=== PATIENT | male | born 1980 | race Two or more races ===

== ENCOUNTER 2017-11-16 11:12 | Emergency (ER) | payer MEDICAID, OTHER ==
--- NOTE | 2017-11-16 12:00 | EDPHY ---
H & P Time Seen by Provider: 11/16/17 11:42 HPI/ROS: HPI Med clearance for snf. 37-year-old male with [place] police in by EMS. Patient is currently under arrest. On his way to snf he was thought to have seizure activity. EMS evaluated him. They felt this was low probability. His blood sugar was 114. However they decided to bring him to the emergency department to be medically cleared. EMS and police report that he was of clear speech in verbally abusive to them on the way to the hospital. He then will shut his eyes and not respond to questioning. When I evaluated him he opens his eyes spontaneously. He answers questions appropriately. The 1st thing he said was "I am fucking dehydrated and I need something to eat." He denies alcohol. He admits to recent use of cocaine and methamphetamine. There is no history of trauma or assault. He has no other complaints. ROS: Constitutional: No fever, no chills. No weakness. Eyes: No discharge. No changes in vision. ENT: No sore throat. No nasal congestion or rhinorrhea. Respiratory: No cough. No shortness of breath. Cardiac: No chest pain, no palpitations. Gastrointestinal: No abdominal pain, no vomiting, no diarrhea. Genitourinary: No hematuria. No dysuria or increased frequency with urination. Musculoskeletal: No back pain. No neck pain. No myalgias or arthralgias. Skin: No rashes. Neurological: No headache. No focal weakness or altered sensation. Past medical history: Traumatic brain injury, history of seizures, anxiety. Polysubstance abuse. Social history: Polysubstance abuse. In and out of snf. Denies alcohol. Physical Exam: General Appearance: Alert, no distress. This patient is responding to questions appropriately and in full sentences. This patient appears well- hydrated and well-nourished. Head: Normocephalic atraumatic except for a superficial abrasion to the superior anterior mid scalp. No associated hematoma, bony step-off or deformity noted. Face: Facial bones are stable on palpation. Eyes: Pupils equal and round and reactive to light, no pallor or injection. No lid erythema or edema. ENT, Mouth: Mucous membranes moist. Dentition is intact. No malocclusion of the jaw. No tongue lacerations or abrasions. Pharynx is clear. The bilateral nasal canals are clear. No septal hematoma. Respiratory: There are no retractions, lungs are clear to auscultation with good air movement bilaterally. Chest wall is stable to AP and lateral palpation. Cardiovascular: Regular rate and rhythm. Borderline tachycardia. No murmur. Gastrointestinal: Abdomen is soft and nontender, no masses, bowel sounds normal. Neurological: Motor sensory function is intact. Cranial nerves are normal. Cerebellar function intact. Skin: Warm and dry, no rashes. No lacerations, abrasions or contusions. Musculoskeletal: Neck is supple and nontender. The trachea is midline. No midline cervical, thoracic, lumbar or sacral tenderness on palpation. No flank tenderness on palpation. Extremities are symmetrical, full range of motion. All joints in the bilateral upper and bilateral lower extremities range without pain or impingement. No tenderness on palpation of the long bones in the bilateral upper and bilateral lower extremities. Psychiatric: No agitation. No depression. Database: EKG: Imaging: Procedures: Emergency department course: Triage vital signs reviewed. Mildly tachycardic. Vital signs otherwise normal. I feel that a seizure is unlikely in this patient. He was medically cleared for discharge with police to snf at 12:00 p.m.. Follow-up and return to emergency department precautions were reviewed with him and the police. All of his questions were answered. The patient was discharged in good condition. Differential Diagnosis: The differential diagnosis on this patient includes but is not limited to polysubstance abuse, medical clearance for snf. Seizure, hypoglycemia, traumatic brain injury, other significant traumatic injury unlikely. This represents a partial list of diagnoses considered. These considerations are based on history, physical exam, past history, reassessment and diagnostic testing. Smoking Status: Current every day smoker Constitutional: Initial Vital Signs Temperature (C) 36.6 C 11/16/17 11:16 Heart Rate 108 H 11/16/17 11:16 Respiratory Rate 20 11/16/17 11:16 Blood Pressure 130/87 H 11/16/17 11:16 O2 Sat (%) 94 11/16/17 11:16 O2 Delivery Mode Room Air Allergies/Adverse Reactions: No Known Allergies Allergy (Unverified 11/16/17 11:28) Home Medications: Medication Instructions Recorded NK [No Known Home Meds] 11/16/17 Departure - Departure Disposition: Law Enforcement/Court/[facility] Clinical Impression: Polysubstance abuse, Medical clearance for incarceration Condition: Good Instructions: Polysubstance Abuse (ED) Additional Instructions: Read and follow provided instructions. Follow-up with your primary care physician in 1-2 days for re-evaluation. Do not take drugs. Return to the emergency department for worsening symptoms or other serious concerns. Referrals: NONE *PRIMARY CARE P,. [Primary Care Provider] - As per Instructions
[2017-11-16 12:31] VITALS: BP 118/88
== END 2017-11-16 12:31 ==
LOC: EDUNIT#
DX: Z02.89 Encounter for other administrative examinations (principal); F19.10 Other psychoactive substance abuse, uncomplicated; F17.200 Nicotine dependence, unspecified, uncomplicated

== ENCOUNTER 2017-12-26 21:12 | Emergency (ER) | payer MEDICAID ==
[2017-12-26 21:20] VITALS: BP 117/63
--- NOTE | 2017-12-26 21:30 | EDPHY ---
H & P Stated Complaint: LUMP ON BACK X2 YRS, "GETTING BIGGER" Time Seen by Provider: 12/26/17 21:29 HPI/ROS: HPI: This is a 37-year-old male who presents with Chief Complaint: Lump on back getting bigger; present for 2 years Location: Back Quality: Lump Duration: 2 year Signs and Symptoms: No bleeding, no radiation, no numbness, no weakness, no tingling, no incontinence, no decreased range of motion, no swelling, no pain, no fever Timing: Chronic Severity: Mild Context: Patient reports that he has a lump on his upper back that has slowly increased in size over the last 2 years. He denies any skin color changes, redness, warmth, discharge, trauma. Reports that he his girlfriend became concerned, so he came in to the emergency room tonight for further evaluation. He has no primary care provider. Modifying Factors: None Comment: ROS: see HPI Constitutional: No fever, no chills, no weight loss Eyes: No blurred vision Respiratory: No shortness of breath, no cough Cardiovascular: No chest pain Gastrointestinal: No nausea, no vomiting no diarrhea Genitourinary: No dysuria Extremities: No myalgias Neurologic: No weakness, no numbness Skin: No rashes Hematologic: No bruising, no bleeding MEDICAL/SURGICAL/SOCIAL HISTORY: Medical history: TBI. Seizures. Anxiety. Surgical history: Denies Social history: Current every day smoker. Unemployed. CONSTITUTIONAL: Extremely well-appearing adult male, awake and alert, no obvious distress HEENT: Atraumatic and normocephalic, PERRL, EOMI. Nares patent; no rhinorrhea; no nasal mucosal edema. Tympanic membranes clear. Oropharynx clear, no exudate and moist pink mucosa. Airway patent. No lymphadenopathy. No meningismus. Cardiovascular: Normal S1/S2, regular rate, regular rhythm, without murmur rub or gallop. PULMONARY/CHEST: Symmetrical and nontender. Clear to auscultation bilaterally. Good air movement. No accessory muscle usage. ABDOMEN: Soft, nondistended, nontender, no rebound, no guarding, no peritoneal signs, no masses or organomegaly. No CVAT. EXTREMITIES: 2/2 pulses, strength 5/5, no deformities, no clubbing, no cyanosis or edema. NEUROLOGICAL: no focal neuro deficits. GCS 15. SKIN: Warm and dry, no erythema. no rash. Good capillary refill. Source: Patient Exam Limitations: No limitations - Personal History Current Tetanus/Diphtheria Vaccine: Yes Tetanus Vaccine Date: 12/2017 - Medical/Surgical History Hx Asthma: No Hx Chronic Respiratory Disease: No Hx Diabetes: No Hx Cardiac Disease: No Hx Renal Disease: No Hx Cirrhosis: No Hx Alcoholism: No Hx HIV/AIDS: No Hx Splenectomy or Spleen Trauma: No Other PMH: TBI. Seizures. Anxiety. - Social History Smoking Status: Current every day smoker Constitutional: Initial Vital Signs Temperature (C) 36.8 C 12/26/17 21:17 Heart Rate 85 12/26/17 21:17 Respiratory Rate 20 12/26/17 21:17 Blood Pressure 117/63 12/26/17 21:17 O2 Sat (%) 96 12/26/17 21:17 O2 Delivery Mode Room Air Allergies/Adverse Reactions: No Known Allergies Allergy (Unverified 12/26/17 21:17) Home Medications: Medication Instructions Recorded NK [No Known Home Meds] 11/16/17 Medical Decision Making ED Course/Re-evaluation: No signs of neurovascular compromise/tenting of skin/compartment syndrome/ extremities and joints examined above and below area of concern and are neurovascularly intact/abscess/cellulitis. This is clearly a subcutaneous cyst vs. lipoma. Advised to follow up with General surgery or plastic surgery for removal. No antibiotics or incision and drainage are indicated at this time. This patient was seen under the supervision of my secondary supervising physician. I evaluated care for this patient independently. Discussed this patient with Dr. Machado. Differential Diagnosis: Differential diagnosis includes but is not limited to sebaceous cyst, lipoma, malignancy, abscess. Departure - Departure Disposition: Home, Routine, Self-Care Clinical Impression: Lipoma of back Condition: Good Instructions: Lipoma (ED), Soft Tissue Mass (ED), Lipoma Removal (DC) Additional Instructions: Return to the ER immediately if you experience redness, red streaks, have fevers /chills, flu like symptoms, limited range of motion, or any other symptoms that concern you. Referrals: [facility],. [Clinic] - Follow Up Only If Needed
== END 2017-12-26 22:05 | disposition home or self-care (01) ==
DX: D17.1 Benign lipomatous neoplasm of skin and subcutaneous tissue of trunk (principal); F17.200 Nicotine dependence, unspecified, uncomplicated

== ENCOUNTER 2018-02-01 11:00 | Emergency (ER) | payer MEDICAID ==
[2018-02-01] MEDS ORDERED: PROMETHAZINE HCL 25 MG/ML INJ IVP ONE (11:17)
[2018-02-01] MEDS ORDERED: NS 1,000 ML IV ONE (11:17)
--- NOTE | 2018-02-01 11:17 | EDPHY ---
General Time Seen by Provider: 02/01/18 11:09 Narrative: CHIEF COMPLAINT: Shaky, nausea, fever HISTORY OF PRESENT ILLNESS: Patient presents by private vehicle with spouse. He complains of feeling sudden onset of shaky, feeling achy, nauseated, fever, dizzy, "everything went blank." He states that he woke this morning feeling well, but the symptoms started while at work. He has had no chest pain. No headache. No neck pain or stiffness. Difficult for him to describe the symptoms, he repeatedly states "under no I just feel really really sick and achy. I can't really describe it. " He states that he is tried to vomit but has had been able to do so. No shortness of breath. Mild, nonproductive cough. No abdominal pain. No back pain. No trauma or injury. No other associated complaints or modifying factors. REVIEW OF SYSTEMS: Ten systems reviewed and are negative unless otherwise noted in the HPI PCP: [facility] SPECIALISTS: None PAST MEDICAL HISTORY: Traumatic brain injury, seizures, anxiety. 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 Daily tobacco use. Occasional alcohol use. Works here locally. FAMILY HISTORY: Noncontributory EXAMINATION General Appearance: Alert, no distress Head: normocephalic, atraumatic Eyes: Pupils equal and round, no conjunctival pallor or injection. EOM symmetric. ENT, Mouth: Mucous membranes moist Neck: Normal inspection, supple, non-tender. Painless range of motion all planes with no meningismus or rigidity. Respiratory: Mild scattered rhonchi. No wheezing, crackles or diminishment Cardiovascular: Regular rate and rhythm. No murmur Gastrointestinal: Abdomen is soft and nontender Back: non-tender, no bony abnormalities Neurological: GCS 15. A&O, nonfocal, normal gait Skin: Warm and dry, no rash. Multiple tattoos. No petechiae or purpura Extremities: Nontender, no pedal edema Psychiatric: Mood and affect normal DIFFERENTIAL DIAGNOSES: Including but not limited to viral illness, anxiety, dehydration, gastritis, pancreatitis, cholecystitis, cholelithiasis MDM: 11:15 a.m. Acute vague symptomatology without any abnormality on examination. Vital signs are within normal limits. He is afebrile and does not exhibit any SIRS criteria. I have ordered laboratory studies. IV will be placed in will administer antinausea medication as well as IV fluid. Chest x-ray has been ordered to rule out pneumonia. He is resting comfortably in no acute distress with his spouse at bedside. 12:00 p.m. Chest x-ray unremarkable for any pneumonia. CBC is unremarkable. Remainder laboratory studies pending. 12:30 p.m. Chemistry returns with a normal lipase. His LFTs are normal with exception of mild elevation of the AST and ALT. No previous values available for comparison. I re-evaluated the patient this time. He states that he is feeling much better. He has tolerated liquids by mouth. No vomiting here. He says that his symptoms are significantly better. I do feel he is stable for discharge home at this time. We discussed increasing fluid intake with clear liquid diets today. We discussed antiemetic prescription medication. We discussed follow up primary care physician and ED precautions for worsening symptoms. He is comfortable this plan discharged home stable condition. SUPERVISION: This patient was independently evaluated without direct involvement of or examination by the attending physician. - Diagnostics Imaging Results: Imaging Impressions Chest X-Ray 02/01/18 11:17 Impression: No focal pneumonia. - History Smoking Status: Current every day smoker - Objective Vital Signs: Initial Vital Signs Temperature (C) 98.4 F 02/01/18 11:02 Heart Rate 73 02/01/18 11:02 Respiratory Rate 16 02/01/18 11:02 Blood Pressure 129/74 H 02/01/18 11:02 O2 Sat (%) 98 02/01/18 11:02 O2 Delivery Mode Room Air Allergies/Adverse Reactions: No Known Allergies Allergy (Verified 02/01/18 11:02) Home Medications: Medication Instructions Recorded Ondansetron Odt [Zofran Odt 4 mg 4 mg PO Q6 PRN #12 tab 02/01/18 (*)] Promethazine HCl [Phenergan 25mg 25 mg PO Q8 PRN #12 tab 02/01/18 (*)] Laboratory Results: Laboratory Results 02/01/18 11:30 02/01/18 11:30 02/01/18 02/01/18 11:30 11:30 WBC 6.08 10^3/uL 10^3/uL (3.80-9.50) RBC 5.15 10^6/uL 10^6/uL (4.40-6.38) Hgb 16.2 g/dL g/dL (13.7-17.5) Hct 45.5 % % (40.0-51.0) MCV 88.3 fL fL (81.5-99.8) MCH 31.5 pg pg (27.9-34.1) MCHC 35.6 g/dL g/dL (32.4-36.7) RDW 11.8 % % (11.5-15.2) Plt Count 220 10^3/uL 10^3/uL (150-400) MPV 9.9 fL fL (8.7-11.7) Neut % (Auto) 73.8 % % (39.3-74.2) Lymph % (Auto) 21.4 % % (15.0-45.0) [place] % (Auto) 3.0 % L % (4.5-13.0) Eos % (Auto) 0.5 % L % (0.6-7.6) Baso % (Auto) 1.0 % % (0.3-1.7) Nucleat RBC Rel Count 0.0 % % (0.0-0.2) Absolute Neuts (auto) 4.49 10^3/uL 10^3/uL (1.70-6.50) Absolute Lymphs (auto) 1.30 10^3/uL 10^3/uL (1.00-3.00) Absolute Monos (auto) 0.18 10^3/uL L 10^3/uL (0.30-0.80) Absolute Eos (auto) 0.03 10^3/uL 10^3/uL (0.03-0.40) Absolute Basos (auto) 0.06 10^3/uL 10^3/uL (0.02-0.10) Absolute Nucleated RBC 0.00 10^3/uL 10^3/uL (0-0.01) Immature Gran % 0.3 % % (0.0-1.1) Immature Gran # 0.02 10^3/uL 10^3/uL (0.00-0.10) Sodium 143 mEq/L mEq/L (135-145) Potassium 4.4 mEq/L mEq/L (3.3-5.0) Chloride 106 mEq/L mEq/L (97-110) Carbon Dioxide 28 mEq/l mEq/l (22-31) Anion Gap 9 mEq/L mEq/L (8-16) BUN 14 mg/dL mg/dL (7-23) Creatinine 0.8 mg/dL mg/dL (0.7-1.3) Estimated GFR > 60 Glucose 87 mg/dL mg/dL (70-100) Calcium 9.9 mg/dL mg/dL (8.5-10.4) Total Bilirubin 0.9 mg/dL mg/dL (0.1-1.4) Conjugated Bilirubin 0.2 mg/dL mg/dL (0.0-0.5) Unconjugated Bilirubin 0.7 mg/dL mg/dL (0.0-1.1) AST 120 IU/L H IU/L (17-59) ALT 238 IU/L H IU/L (21-72) Alkaline Phosphatase 61 IU/L IU/L (38-126) Total Protein 8.0 g/dL g/dL (6.3-8.2) Albumin 4.7 g/dL g/dL (3.5-5.0) Lipase 264 IU/L IU/L (23-300) Medications Given: Discontinued Medications Sodium Chloride (Ns) 1,000 mls @ 0 mls/hr IV EDNOW ONE; Wide Open PRN Reason: Protocol Stop: 02/01/18 11:18 Last Admin: 02/01/18 11:35 Dose: 1,000 mls Promethazine HCl (Phenergan) 12.5 mg IVP ONCE ONE Stop: 02/01/18 11:18 Last Admin: 02/01/18 11:36 Dose: 12.5 mg Departure - Departure Disposition: Home, Routine, Self-Care Clinical Impression: Malaise Nausea & vomiting Qualifiers: Vomiting type: unspecified Vomiting Intractability: non-intractable Qualified Code(s): R11.2 - Nausea with vomiting, unspecified Condition: Good Instructions: Acute Nausea and Vomiting (ED), Clear Liquid Diet (ED), Viral Syndrome (ED) Additional Instructions: 1. Clear liquid diet today, advancing slowly as tolerated. Increase fluid intake for the next 48 hr 2. Nausea medication as prescribed as needed 3. Contact primary care physician for outpatient workup 4. Return here for any return of symptoms or intractable vomiting Referrals: [facility],. [Clinic] - As per Instructions Stand Alone Forms: Work Excuse Prescriptions: Ondansetron Odt [Zofran Odt 4 mg (*)] 4 mg PO Q6 PRN #12 tab PRN Reason: Nausea/Vomiting, Use 1st Promethazine HCl [Phenergan 25mg (*)] 25 mg PO Q8 PRN #12 tab PRN Reason: Nausea/Vomiting, Use 1st
[2018-02-01 11:47] LABS: PLATELET COUNT 220 10^3/uL (150-400)
[2018-02-01 12:53] VITALS: BP 129/72
== END 2018-02-01 12:53 | disposition home or self-care (01) ==
DX: R11.2 Nausea with vomiting, unspecified (principal); R50.9 Fever, unspecified; F17.200 Nicotine dependence, unspecified, uncomplicated
CPT/HCPCS: 96374; G0480; J2550

== ENCOUNTER 2018-02-15 16:28 | Emergency (ER) | payer MEDICAID ==
--- NOTE | 2018-02-15 17:47 | EDPHY ---
H & P Stated Complaint: Sore on penis Time Seen by Provider: 02/15/18 17:47 HPI/ROS: HPI: This is a 37-year-old male who presents with Chief Complaint: Sore on penis Location:penis Quality: sore Duration: Since last night Signs and Symptoms: no fever, no nausea, no vomiting, no diarrhea, no urinary symptoms, no chest pain, no shortness of breath, no wheezing, no cough, no sore throat, no neck stiffness, no joint pain, no swollen glands, no ear pain, no rash, no penile discharge, no testicular or groin pain Timing: Acute Severity: Mild Context: Patient presents with noticing a sore on the left side of his penile shaft yesterday evening after working at the [employer]. He denies any urinary symptoms, concern for STD, penile discharge, hematuria. He reports that he is currently in a relationship and monogamous. His significant other is 5 months . + tobacco user Modifying Factors: none the Comment: ROS: A comprehensive 10 system review of systems is otherwise negative aside from elements mentioned in the history of present illness. MEDICAL/SURGICAL/SOCIAL HISTORY: Medical history: TBI. Seizures. Anxiety. Surgical history: Denies Social history: Tobacco user. Family history noncontributory. CONSTITUTIONAL: Extremely well-appearing male, awake and alert, no obvious distress HEENT: Atraumatic and normocephalic, PERRL, EOMI. Nares patent; no rhinorrhea; no nasal mucosal edema. Tympanic membranes clear. Oropharynx clear, no exudate and moist pink mucosa. Airway patent. No lymphadenopathy. No meningismus. Cardiovascular: Normal S1/S2, regular rate, regular rhythm, without murmur rub or gallop. PULMONARY/CHEST: Symmetrical and nontender. Clear to auscultation bilaterally. Good air movement. No accessory muscle usage. ABDOMEN: Soft, nondistended, nontender, no rebound, no guarding, no peritoneal signs, no masses or organomegaly. No CVAT. Male : circumcised penis, bilateral descended testes, no testicular swelling, no testicular masses, no penile discharge, 2 mm fluctuant superficial area on the left side of the shaft; no surrounding erythema; no vesicles; no ulcerations. negative Prehn's sign. EXTREMITIES: 2/2 pulses, strength 5/5, no deformities, no clubbing, no cyanosis or edema. NEUROLOGICAL: no focal neuro deficits. GCS 15. SKIN: Warm and dry, no erythema. no rash. Good capillary refill. Source: Patient Exam Limitations: No limitations - Personal History Current Tetanus Diphtheria and Acellular Pertussis (TDAP): Yes Tetanus Vaccine Date: 12/2017 - Medical/Surgical History Hx Asthma: No Hx Chronic Respiratory Disease: No Hx Diabetes: No Hx Cardiac Disease: No Hx Renal Disease: No Hx Cirrhosis: No Hx Alcoholism: No Hx HIV/AIDS: No Hx Splenectomy or Spleen Trauma: No Other PMH: TBI. Seizures. Anxiety. - Social History Smoking Status: Current every day smoker Constitutional: Initial Vital Signs Temperature (C) 36.9 C 02/15/18 16:58 Heart Rate 86 02/15/18 16:58 Respiratory Rate 18 02/15/18 16:58 Blood Pressure 128/82 H 02/15/18 16:58 O2 Sat (%) 97 02/15/18 16:58 O2 Delivery Mode Room Air Allergies/Adverse Reactions: No Known Allergies Allergy (Verified 02/15/18 16:57) Home Medications: Medication Instructions Recorded Cephalexin [Keflex (*)] 500 mg PO TID #21 cap 02/15/18 Sulfamethox/Tmp 800/160 mg 1 tab PO BID #14 tab 02/15/18 [Bactrim Ds] Medical Decision Making Procedures: Procedure: Abscess drainage. The patient's abscess was located on the shaft of the penis. I obtained verbal consent from the patient to drain the abscess who was informed about the possibility of bleeding and pain. The abscess was incised with 18 gauge needle and 2 mL amount of purulent drainage was expressed. I irrigated the wound and no packing placed. The patient tolerated the procedure well. The procedure was performed by myself. ED Course/Re-evaluation: Vital signs reviewed and Stable upon arrival patient adamantly refuses any STD testing This appears to be a superficial folliculitis. I and D made with removal of ingrown hair Verbal and written wound care instructions provided. Keflex and Bactrim prescription given. This patient was seen under the supervision of my secondary supervising physician. I evaluated care for this patient independently. Discussed this patient with Dr. Machado. Differential Diagnosis: Differential diagnosis includes but is not limited to herpes simplex, genital warts, folliculitis, MRSA infection. Departure - Departure Disposition: Home, Routine, Self-Care Clinical Impression: Superficial folliculitis due to bacteria Condition: Good Instructions: Folliculitis (ED) Additional Instructions: Take Tylenol 650 mg every 4 hours and/or Ibuprofen 600 mg every 8 hours with food as needed for pain. Apply warm compresses for 30 minutes at a time; 2-3 times per day for the next 1 -2 days. Take Keflex and Bactrim as directed. Do not skip a dose. No sexual intercourse until infection has resolved. Referrals: [facility],. [Clinic] - As per Instructions Prescriptions: Cephalexin [Keflex (*)] 500 mg PO TID #21 cap Sulfamethox/Tmp 800/160 mg [Bactrim Ds] 1 tab PO BID #14 tab
[2018-02-15 18:33] VITALS: BP 133/77
== END 2018-02-15 18:20 | disposition home or self-care (01) ==
PROC: 0V9S3ZZ Drainage of Penis, Percutaneous Approach (ICD-10-PCS; principal; 2018-02-15)
DX: L73.8 Other specified follicular disorders (principal); B96.89 Other specified bacterial agents as the cause of diseases classified elsewhere